=== PATIENT | female | born 1965 | race Caucasian/White ===

== ENCOUNTER 2016-07-29 05:23 | Inpatient (IN) | payer OTHER ==
[2016-07-27 11:22] LABS: HEMATOCRIT 38.2 % (37.0-47.0); HEMOGLOBIN 13.1 gm/dL (12.0-15.0); MCHC 34.3 g/dL (28.0-37.0); MCV 87.5 fL (80.0-100.0); RBC 4.36 mil/uL (4.20-5.00); RDW 15.2 % (10.5-14.5); WBC 10.9 thou/uL (4.0-11.0)
[2016-07-27 11:34] LABS: APTT 23.9 Seconds (24.5-32.8); PROTIME 10.4 Seconds (9.3-11.4)
[2016-07-27 11:53] LABS: ALBUMIN 3.4 g/dL (3.4-5.0); CALCIUM 8.6 mg/dL (8.5-10.1); CREATININE 0.8 mg/dL (0.6-1.0); POTASSIUM 3.2 mmol/L (3.5-5.1); TOTAL BILIRUBIN 0.3 mg/dL (<0.1-1.0); TOTAL PROTEIN 7.2 g/dL (6.4-8.2)
[2016-07-27 12:22] LABS: URINE BILIRUBIN NEGATIVE (Negative); URINE BLOOD 1+ (Negative); URINE COLOR YELLOW; URINE GLUCOSE-RANDOM* 2+ (Negative); URINE KETONES NEGATIVE (Negative); URINE LEUKOCYTES-REFLEX NEGATIVE (Negative); URINE PROTEIN (DIPSTICK) TRACE (Negative); URINE SPECIFIC GRAVITY >= 1.030 (1.003-1.035); URINE UROBILINOGEN 0.2 E.U./dl (0.2-1.0)
[2016-07-27 13:03] LABS: CASTS None Seen /LPF (None Seen); CRYSTALS None Seen /LPF (None Seen); SQUAMOUS 0-3 Few /LPF (0-3); URINE RBC 0-2 Rare /HPF (0-2); URINE WBC-REFLEX 0-5 Rare /HPF (0-5)
[2016-07-29] VITALS (16 sets, daily range): BP systolic 83–138; BP diastolic 51–75
[~2016-07-29] VITALS: Ht 165.1 cm; Wt 73.5 kg
--- NOTE | ~2016-07-29 | S ---
[facility] [place] [address] SURGICAL PATH RPT PROCEDURE Name: LORENE FRANCE A Room #: 237-P [facility] IN M.R.#: [id number] Admission: 07/29/16 Date of : 69 Discharge: Report #: [id number] Path Case #: [id number] PATHOLOGY REPORT COLLECTION DATE: 07/29/2016 RECEIVED DATE: 07/29/2016 SUBMITTING PHYS: Dr. Paul Elizondo OTHER PHYS: Dr. Elpidio Ennis SPECIMEN(S) RECEIVED: A.Right carotid plaque B.Cervical lymph node * * * * * * * * * * * * FINAL DIAGNOSIS: A. Plaque, "right carotid plaque": - Calcified atherosclerotic plaque. B. Lymph node, "cervical lymph node," excision: - Lymphoid follicular hyperplasia. (see comment) COMMENT: This case is also reviewed by Dr. Nevin Beasley who agrees with the above diagnosis. (ROSIE:; d/t: 07/30/16) PATHOLOGIST: Chavez Terrazas M.D. REPORT ELECTRONICALLY SIGNED BY: Chavez Terrazas M.D. DATE/TIME: 07/30/2016 14:27 * * * * * * * * * * * * GROSS PATHOLOGY: A. The specimen is received in formalin, labeled "Lorene France and right carotid plaque." Received is a 2.2 x 0.9 x 0.8 cm white-tinoco, rubbery, and tubular soft tissue with focal areas of calcifications. The specimen is sectioned and representatively submitted in cassette A1, following decalcification. B. The specimen is received in formalin, labeled "Lorene France and cervical lymph node." Received is a 3.3 x 1.5 x 1.2 cm red-pink lymph node with multiple jessica. The specimen is bisected to reveal a red-pink and hemorrhagic cut surface. The lymph node is entirely submitted in cassettes B1-B2. (TTL; 07/29/2016) CLINICAL HISTORY: Right carotid stenosis [facility] [place] [place] Meg[address] [place] [address] SURGICAL PATH RPT PROCEDURE Name: LORENE FRANCE Tony Room #: 237-P [facility] IN .R.#: [id number] Admission: 07/29/16 Date of : 69 Discharge: Report #: [id number] Path Case #: [id number] INITIAL CPT CODE(S): A; 47580, 75582 B; 00533 Professional services [address] by [facility] [address], [place] [address] Technical services performed by [facility] at [address] [place] [address], [facility] [address] [address]. [facility] [address] [place] [address] PHONE: [phone] DIRECTOR: Meet Awad M.D. * * * END OF REPORT * * *
--- NOTE | ~2016-07-29 | O ---
[facility] [place] [address] OPERATIVE REPORT Name: LORENE FRANCE Tony Room #: 237-P [facility] IN M.R.#: [id number] Admission: 07/29/16 Attend Phys: Paul Elizondo MD Discharge: 07/30/16 Date of : 69 Report #: [id number] THIS REPORT FOR: //name// CC: Paul VIVAR DATE OF SERVICE: 07/29/2016 PREOPERATIVE DIAGNOSIS: Right carotid artery stenosis. POSTOPERATIVE DIAGNOSIS: Right carotid artery stenosis. OPERATION: Right carotid endarterectomy with patch closure. SURGEON: Paul Elizondo M.D. MERCHANDISING INTERN: Ernie. ANESTHESIA: General. INDICATION: The patient is a 50-year-old with high-grade right internal carotid stenosis. The patient is known to me from heart surgery approximately 2 months ago. This lesion was found at the preoperative evaluation before heart surgery, but it has been asymptomatic. The left side has trivial disease. FINDINGS AND TECHNIQUE: After general anesthesia was established, exposure was obtained through an oblique neck incision. Common facial vein was divided. Common internal and external carotid arteries were identified and controlled; 10,000 units of heparin were given. Continuous electroencephalographic monitoring was performed during the operation. When the carotid vessels were occluded, no EEG changes were noted. The carotid arteriotomy was made. The endarterectomy was performed without creating a distal flap. Neointima was inspected and all loose debris was removed. Tacking sutures were placed at the transition zone. When the endarterectomy was felt to be satisfactory, the arteriotomy was closed with a thin walled pericardial patch and running Prolene. Prior to finishing the closure, the carotid vessels were backbled and the artery was irrigated with heparinized saline. Flow was established first through the external, then the internal carotid artery. 25 mg of protamine was given to reverse the heparin. When hemostasis was satisfactory, wound was irrigated with antibiotic solution. Maurice drain was brought out through the bottom pole of the incision and the wound was closed in [facility] [address] [place] [address] OPERATIVE REPORT Name: ROMÁNLORENE Tony Room #: 237-P [facility] IN .R.#: [id number] Admission: 07/29/16 Attend Phys: Paul Elizondo MD Discharge: 07/30/16 Date of : 69 Report #: [id number] layers per usual. The patient tolerated the procedure well and was taken to the recovery area where her neurologic progress was monitored. All counts reported as correct. <ELECTRONICALLY SIGNED> By: Paul Elizondo MD 07/30/16 [id number] Paul Elizondo MD /nt
[~2016-07-29 05:23] MED LIST: ACETAMINOPHEN325 M1 PO; ASPIR 8181 M1 PO; ASPIR 8181 MG PO; ATIVAN1 MG PO; ATORVASTATIN CA20 MG PO; FERREX 150 PLU1 EAC1 PO; HYDROCHLOROTH12.5 M1 PO; HYDROCODON-ACE1 EAC7 PO; IBUPROFEN 800800 M1 PO; LIPITOR 20 MG T20 M1 PO; METFORMIN HCL500 MG PO; NICOTINE TRANSD21 M1; QUINAPRIL-HCTZ1 EACH PO; WELLBUTRIN 75 M75 M1 PO; WELLBUTRIN XL300 MG PO
[2016-07-30] VITALS (21 sets, daily range): BP systolic 53–120; BP diastolic 10–80
[2016-07-30 04:37] LABS: HEMATOCRIT 28.8 % (37.0-47.0); MCH 29.2 pg (26.0-34.0); MCHC 33.2 g/dL (28.0-37.0); RBC 3.28 mil/uL (4.20-5.00); RDW 15.6 % (10.5-14.5); WBC 11.7 thou/uL (4.0-11.0)
[2016-07-30 04:45] LABS: HEMOGLOBIN 9.6 gm/dL (12.0-15.0)
[2016-07-30 04:52] LABS: CALCIUM 7.1 mg/dL (8.5-10.1); CREATININE 0.8 mg/dL (0.6-1.0)
[2016-07-30 05:07] LABS: POTASSIUM 2.9 mmol/L (3.5-5.1)
[2016-08-03] MEDS ORDERED: CLEOCIN HCL150 MG PO (08:41)
[2016-08-03] MEDS ORDERED: NORCO 5-325 TA1 EACH PO (10:14)
== END 2016-07-30 18:00 | disposition home or self-care (01) | DRG 39 ==
LOC: ICU 05:23 → TBA 05:23 → PRE 11:14 → EDSTATUS 11:22 → PRE 11:24 → ICU 12:30 → OR 14:45 → PRE 15:18 → OR 15:36 → ICU 07-30 18:00
PROVIDERS: Physician Assistant; Surgery Vascular Surgery
PROC: 03CK0ZZ Extirpation of Matter from Right Internal Carotid Artery, Open Approach (ICD-10-PCS; principal; 2016-07-29)
PROC: 03UM0JZ Supplement Right External Carotid Artery with Synthetic Substitute, Open Approach (ICD-10-PCS; principal; 2016-07-29)
DX: I65.21 Occlusion and stenosis of right carotid artery (principal); E87.6 Hypokalemia; I25.10 Atherosclerotic heart disease of native coronary artery without angina pectoris; I10 Essential (primary) hypertension; Z95.1 Presence of aortocoronary bypass graft; Z91.041 Radiographic dye allergy status; Z79.82 Long term (current) use of aspirin; Z79.899 Other long term (current) drug therapy; Z82.49 Family history of ischemic heart disease and other diseases of the circulatory system
CPT/HCPCS: 10078; 50010; 50101; 50386; 50417; 50455; 51301; 52279; 54118; 56524; 56526; 56527; 56528; 56531; 56534; 62110; 62900; 65020; 65040; 65043; 70005

== ENCOUNTER → 2016-08-06 | Outpatient (CLI) | payer OTHER ==
[~2016-08-06] MED LIST changes: +CLEOCIN HCL150 MG PO; +NORCO 5-325 TA1 EACH PO
== END ==
LOC: ULTRA 16:21
DX: R22.1 Localized swelling, mass and lump, neck (principal)